=== PATIENT | female | born 1985 | race Caucasian/White ===

== ENCOUNTER 2018-04-13 22:07 | Outpatient (CLI) | payer SELFPAY ==
[2018-04-13 23:54] LABS: ADD UMIC YES; UR ASCORBIC ACID NEGATIVE (NEGATIVE); UR BACTERIA FEW /HPF (NONE SEEN); UR BILIRUBIN (Dip) NEGATIVE (NEGATIVE); UR BLOOD (Dip) NEGATIVE (NEGATIVE); UR CLARITY SLIGHTLY CLOUDY (CLEAR); UR COLOR YELLOW (YELLOW); UR GLUCOSE (Dip) NEGATIVE (NEGATIVE); UR KETONES (Dip) NEGATIVE (NEGATIVE); UR LEUKOCYTE ESTERASE (Dip) 2+ Leu/ul (NEGATIVE); UR MUCUS FEW /HPF (NONE SEEN); UR NITRITE (Dip) POSITIVE (NEGATIVE); UR RBC 1 /HPF (0-5); UR SPECIFIC GRAVITY (Dip) 1.015 (1.003-1.030); UR SQUAMOUS EPITHELIAL CELL FEW /HPF (FEW); UR TOTAL PROTEIN (Dip) NEGATIVE (NEGATIVE); UR UROBILINOGEN (Dip) 2+ mg/dL (NEGATIVE); UR WBC 28 /HPF (0-5)
[2018-04-14] MEDS: ACETAMINOPHEN 500 MG TAB PO (00:10)
== END 2018-04-14 02:04 | disposition home or self-care (01) ==
LOC: OBT 22:07 → L-D 22:09
DX: O26.893 Other specified pregnancy related conditions, third trimester (principal); K08.89 Other specified disorders of teeth and supporting structures; Z3A.32 32 weeks gestation of pregnancy
CPT/HCPCS: 76815; 76817; 81001; 87086

== ENCOUNTER 2018-05-06 08:39 | Inpatient (IN) | payer MEDICAID ==
[~2018-05-06 08:39] MED LIST: EPHEDrine 50 MG INJ; OXYTOCIN 30 UNITS/LR 500 ML BAG IV
[2018-05-06] MEDS: LACTATED RINGER'S 1,000 ML IV ×3 (10:33→15:23)
[2018-05-06 11:12] LABS: ADD UMIC YES; UR ASCORBIC ACID NEGATIVE (NEGATIVE); UR BACTERIA FEW /HPF (NONE SEEN); UR BILIRUBIN (Dip) NEGATIVE (NEGATIVE); UR BLOOD (Dip) NEGATIVE (NEGATIVE); UR CLARITY SLIGHTLY CLOUDY (CLEAR); UR COLOR YELLOW (YELLOW); UR GLUCOSE (Dip) NEGATIVE (NEGATIVE); UR KETONES (Dip) NEGATIVE (NEGATIVE); UR LEUKOCYTE ESTERASE (Dip) 1+ Leu/ul (NEGATIVE); UR NITRITE (Dip) NEGATIVE (NEGATIVE); UR RBC 2 /HPF (0-5); UR SQUAMOUS EPITHELIAL CELL MODERATE /HPF (FEW); UR TOTAL PROTEIN (Dip) NEGATIVE (NEGATIVE); UR UROBILINOGEN (Dip) NEGATIVE (NEGATIVE); UR WBC 2 /HPF (0-5)
[2018-05-06] MEDS ORDERED: CARBOPROST 250 MCG INJ IM ×2 (15:00→19:00)
[2018-05-06] MEDS ORDERED: CEFAZOLIN 2 GM/50 ML (PMX) 50 ML IV (15:00)
[2018-05-06] MEDS ORDERED: METHYLERGONOVINE 0.2 MG INJ IM ×2 (15:00→19:00)
[2018-05-06] MEDS ORDERED: MISOPROSTOL 200 MCG TAB PR ×2 (15:00→19:00)
[2018-05-06] MEDS ORDERED: OXYTOCIN 30 UNITS/LR 500 ML IV ×2 (15:00→19:00)
[2018-05-06 15:10] LABS: ADD MAN DIFF? NO
[2018-05-06 15:16] LABS: BASOPHILS % 0.3 % (0.0-2.0); EOSINOPHILS # 0.1 10^3/ul (0.0-0.5); EOSINOPHILS % 0.5 % (0.0-7.0); HEMATOCRIT 34.7 % (37.0-47.0); HEMOGLOBIN 11.5 g/dl (12.0-16.0); LYMPHOCYTES # 1.9 10^3/ul (0.8-2.9); LYMPHOCYTES % 20.4 % (15.0-51.0); MEAN CORPUSCULAR HEMOGLOBIN 31.4 pg (29.0-33.0); MEAN CORPUSCULAR HGB CONC 33.1 g/dl (32.0-37.0); MEAN CORPUSCULAR VOLUME 94.8 fl (82.0-101.0); MONOCYTE # 0.8 10^3/ul (0.3-0.9); NEUTROPHIL # 6.6 10^3/ul (1.6-7.5); NEUTROPHILS % 70.5 % (39.0-77.0); PLATELET COUNT 328 10^3/UL (140-415); RED BLOOD COUNT 3.66 10^6/ul (4.20-5.40); RED CELL DISTRIBUTION WIDTH 12.5 % (11.5-14.5)
[2018-05-06 15:16] LABS: WHITE BLOOD COUNT 9.4 10^3/ul (4.8-10.8)
[2018-05-06 15:50] LABS: INR 0.88; PARTIAL THROMBOPLASTIN TIME 26.1 Sec (25.0-35.0); PT RATIO 0.9
[2018-05-06] MEDS: ONDANSETRON 4 MG INJ IV ×2 (15:58→20:13)
[2018-05-06] MEDS: CITRIC ACID/SODIUM CITRATE 15 ML CUP PO (15:58)
[2018-05-06 16:04] LABS: HEPATITIS B SURFACE ANTIGEN NEGATIVE (NEGATIVE)
[2018-05-06] MEDS ORDERED: morphine SULFATE/PF (10 MG/10 ML) INJ (16:14)
[2018-05-06] MEDS ORDERED: OXYTOCIN 10 UNIT INJ (16:14)
[2018-05-06] MEDS ORDERED: BUPIVACAINE 0.75%/DEXT (SPINAL) 2 ML INJ (16:15)
[2018-05-06] MEDS ORDERED: PHENYLephrine (100 MCG/ML) 10ML SYG (16:24)
[2018-05-06] MEDS ORDERED: METOCLOPRAMIDE 10 MG INJ (16:34)
[2018-05-06] MEDS ORDERED: DEXAMETHASONE 4 MG/ML 1 ML INJ (16:34)
[2018-05-06] MEDS ORDERED: KETOROLAC 30 MG INJ (16:34)
[2018-05-06] MEDS ORDERED: NALOXONE (0.4 MG/ML) INJ IV (17:00)
[2018-05-06] MEDS ORDERED: HYDROmorphONE 0.5 MG/0.5 ML SYG IV ×2 (17:00)
[2018-05-06] MEDS ORDERED: DIPHENHYDRAMINE 50 MG INJ IV (17:00)
[2018-05-06] MEDS ORDERED: HYDROCODONE/APAP (5/325) TAB PO (17:00)
[2018-05-06] MEDS ORDERED: morphine 2 MG INJ IV ×2 (17:00)
[2018-05-06] MEDS ORDERED: NALBUPHINE HCL (10 MG/1 ML) INJ IV (17:00)
[2018-05-06] MEDS ORDERED: ACETAMINOPHEN 500 MG TAB PO (17:00)
[2018-05-06] MEDS: OXYTOCIN 30 UNITS/LR 500 ML IV ×2 (18:09→22:49)
[2018-05-06] MEDS: CEFAZOLIN 2 GM/50 ML (PMX) 50 ML IV (18:44)
[2018-05-06] MEDS: KETOROLAC 30 MG INJ IV (19:36)
[2018-05-06] MEDS: SENNA/DOCUSATE NA (8.6MG/50MG) TAB PO (21:00)
[2018-05-06 22:15] LABS: RAPID PLASMA REAGIN NONREACTIVE (NR)
[2018-05-07] MEDS: CEFAZOLIN 2 GM/50 ML (PMX) 50 ML IV ×3 (03:32→18:40)
[2018-05-07 07:22] LABS: ADD MAN DIFF? NO
[2018-05-07 07:38] LABS: WHITE BLOOD COUNT 16.8 10^3/ul (4.8-10.8)
[2018-05-07 07:38] LABS: BASOPHILS % 0.1 % (0.0-2.0); HEMATOCRIT 29.2 % (37.0-47.0); HEMOGLOBIN 9.8 g/dl (12.0-16.0); LYMPHOCYTES # 1.1 10^3/ul (0.8-2.9); LYMPHOCYTES % 6.6 % (15.0-51.0); MEAN CORPUSCULAR HEMOGLOBIN 31.2 pg (29.0-33.0); MEAN CORPUSCULAR HGB CONC 33.6 g/dl (32.0-37.0); MONOCYTE # 0.9 10^3/ul (0.3-0.9); MONOCYTES % 5.3 % (0.0-11.0); NEUTROPHIL # 14.7 10^3/ul (1.6-7.5); NEUTROPHILS % 87.6 % (39.0-77.0); PLATELET COUNT 295 10^3/UL (140-415); RED BLOOD COUNT 3.14 10^6/ul (4.20-5.40); RED CELL DISTRIBUTION WIDTH 12.2 % (11.5-14.5)
[2018-05-07] MEDS: SENNA/DOCUSATE NA (8.6MG/50MG) TAB PO ×2 (09:15→21:36)
[2018-05-07] MEDS: LANOLIN 7 GM TUBE TOP (09:16)
[2018-05-07] MEDS: LACTATED RINGER'S 1,000 ML IV (09:20)
[2018-05-07] MEDS: KETOROLAC 30 MG INJ IV (11:20)
[2018-05-07] MEDS ORDERED: OXYCODONE/ACETAMINOPHEN (5/325) TAB PO (16:00)
[2018-05-07] MEDS: IBUPROFEN 600 MG TAB PO ×2 (17:55→23:38)
[2018-05-08] MEDS: OXYCODONE/ACETAMINOPHEN (5/325) TAB PO ×2 (04:21→16:45)
[2018-05-08] MEDS: IBUPROFEN 600 MG TAB PO ×4 (06:33→23:41)
[2018-05-08] MEDS: LACTATED RINGER'S 1,000 ML IV ×4 (07:42→18:15)
[2018-05-08] MEDS: SENNA/DOCUSATE NA (8.6MG/50MG) TAB PO ×2 (09:36→22:10)
[2018-05-09] MEDS: LACTATED RINGER'S 1,000 ML IV ×2 (00:56→10:15)
[2018-05-09] MEDS: IBUPROFEN 600 MG TAB PO ×2 (05:41→12:31)
[2018-05-09 09:21] LABS: ADD MAN DIFF? NO
[2018-05-09 09:37] LABS: WHITE BLOOD COUNT 11.2 10^3/ul (4.8-10.8)
[2018-05-09 09:37] LABS: BASOPHILS % 0.3 % (0.0-2.0); EOSINOPHILS # 0.1 10^3/ul (0.0-0.5); EOSINOPHILS % 1.2 % (0.0-7.0); HEMATOCRIT 27.1 % (37.0-47.0); HEMOGLOBIN 9.1 g/dl (12.0-16.0); LYMPHOCYTES # 1.8 10^3/ul (0.8-2.9); LYMPHOCYTES % 15.9 % (15.0-51.0); MEAN CORPUSCULAR HEMOGLOBIN 32.3 pg (29.0-33.0); MEAN CORPUSCULAR HGB CONC 33.6 g/dl (32.0-37.0); MEAN CORPUSCULAR VOLUME 96.1 fl (82.0-101.0); MEAN PLATELET VOLUME 9.5 fl (7.4-10.4); MONOCYTE # 0.7 10^3/ul (0.3-0.9); MONOCYTES % 5.8 % (0.0-11.0); NEUTROPHIL # 8.6 10^3/ul (1.6-7.5); NEUTROPHILS % 76.4 % (39.0-77.0); PLATELET COUNT 281 10^3/UL (140-415); RED BLOOD COUNT 2.82 10^6/ul (4.20-5.40); RED CELL DISTRIBUTION WIDTH 12.7 % (11.5-14.5)
[2018-05-09] MEDS: SENNA/DOCUSATE NA (8.6MG/50MG) TAB PO (09:37)
[2018-05-09 10:43] LABS: ADD UMIC YES; UR ASCORBIC ACID NEGATIVE (NEGATIVE); UR BILIRUBIN (Dip) NEGATIVE (NEGATIVE); UR BLOOD (Dip) 2+ mg/dL (NEGATIVE); UR CLARITY CLEAR (CLEAR); UR COLOR COLORLESS (YELLOW); UR GLUCOSE (Dip) NEGATIVE (NEGATIVE); UR KETONES (Dip) NEGATIVE (NEGATIVE); UR LEUKOCYTE ESTERASE (Dip) NEGATIVE Leu/ul (NEGATIVE); UR NITRITE (Dip) NEGATIVE (NEGATIVE); UR RBC 1 /HPF (0-5); UR SPECIFIC GRAVITY (Dip) 1.001 (1.003-1.030); UR TOTAL PROTEIN (Dip) NEGATIVE (NEGATIVE); UR UROBILINOGEN (Dip) NEGATIVE (NEGATIVE); UR WBC 0 /HPF (0-5)
[2018-05-09] MEDS: OXYCODONE/ACETAMINOPHEN (5/325) TAB PO (11:38)
== END 2018-05-09 16:00 | disposition home or self-care (01) | DRG 766 ==
LOC: OBT 08:39 → L-D 08:39 → OBT 14:45 → L-D 14:45 → PP1 21:02
PROC: 10D00Z1 Extraction of Products of Conception, Low, Open Approach (ICD-10-PCS; principal; 2018-05-06)
DX: O60.14X0 Preterm labor third trimester with preterm delivery third trimester, not applicable or unspecified (principal); O32.2XX0 Maternal care for transverse and oblique lie, not applicable or unspecified; O34.211 Maternal care for low transverse scar from previous cesarean delivery; O24.420 Gestational diabetes mellitus in childbirth, diet controlled; Z37.0 Single live birth; Z3A.36 36 weeks gestation of pregnancy
CPT/HCPCS: 76817; 76818; 81001; 82962; 85025; 85610; 85730; 86592; 86850; 86900; 86901; 87340; 96360; 99464